=== PATIENT | female | born 2000 | race Caucasian/White ===

== ENCOUNTER 2021-04-22 14:13 | Emergency (ER) | payer OTHER ==
[~2021-04-22 14:13] MED LIST: BENTYL 20MG TAB20 MG PO; CEFUROXIME500 MG PO; LODINE CAP 300300 MG PO; NORCO 5-325 TA1 EACH PO; ZOFRAN ODT 4 MG4 MG SL
== END 2021-04-22 20:48 | disposition home or self-care (01) ==
LOC: ER1 14:13
DX: R19.7 Diarrhea, unspecified (principal); R11.0 Nausea; Z20.822 Contact with and (suspected) exposure to COVID-19; Z90.49 Acquired absence of other specified parts of digestive tract; Z90.89 Acquired absence of other organs; Z88.0 Allergy status to penicillin
CPT/HCPCS: 99284; U0002

== ENCOUNTER 2022-01-19 07:46 | Emergency (ER) | payer OTHER ==
[2022-01-19] MEDS ORDERED: ZITHROMAX250 MG PO (08:13)
== END 2022-01-19 09:01 | disposition home or self-care (01) ==
LOC: ER1 07:46
DX: H66.003 Acute suppurative otitis media without spontaneous rupture of ear drum, bilateral (principal)
CPT/HCPCS: 99282